=== PATIENT | female | born 1930 | race Caucasian/White ===

== ENCOUNTER 2017-04-02 19:25 | Inpatient (IN) | payer MEDICARE, BC ==
--- NOTE | ~2017-04-02 | DS ---
Discharge Summary [facility] [address] [place]. [address] NAME: RAUL HAWK : 30 STATUS : DIS IN PAT#: [id number] AGE: 86 ADM/REG DATE : 04/02/17 MR#: [id number] REPORT SERV DATE: 04/05/17 DICTATED BY: EDDIE GIBBONS DATE: 04/04/17 REPORT STATUS : Draft TRANSCRIBED BY: MODL DATE: 04/04/17 ADMISSION DATE: 04/02/2017 DISCHARGE DATE: 04/04/2017 DISCHARGE DIAGNOSES: Include: 1. Upper gastrointestinal bleed and melena. 2. Hypokalemia, resolved. 3. Hypomagnesia, resolved. 4. History of hypertension. 5. Gastritis. DISCHARGE MEDICATIONS: As follows: Amlodipine 5 mg at bedtime; Lipitor 40 mg daily; Celexa 10 mg at bedtime; Pepcid 20 mg at bedtime; Neurontin 600 mg at bedtime; potassium chloride 10 mEq at bedtime; vitamin B1 500 mg at bedtime; Protonix 40 mg p.o. twice a day for 8 weeks, prescription was written for this; oxycodone APAP 10/325 one tablet every four times a day for pain; aspirin 81 mg daily; and Imodium 2 mg p.r.n. for diarrhea. HISTORY OF PRESENT ILLNESS: Pleasant 86-year-old female, presented with melena. Please see the initial H and P of Dr. Cesar Fleming. This patient is admitted to the Hospitalist Service for further evaluation and treatment. CONSULTANTS DURING THIS ADMISSION: Gastroenterology, Dr. Maynard. PROCEDURES AND IMAGING DURING THIS ADMISSION: Include an initial CT of the abdomen and pelvis showing cardiomegaly, heavy coronary artery disease, extensive diverticulosis and then an upper GI endoscopy that showed a torturous esophagus, nonbleeding erosive gastropathy, gastritis, and a normal duodenal bulb and 2nd part of the duodenum. HOSPITAL COURSE: The patient was admitted and given proton pump inhibitor, IV drip. Lab work was ordered and followed closely and was seen by site coordinator, Dr. Maynard and underwent the above described endoscopy, which she recovered well from. She did have some electrolyte abnormalities of hypokalemia and hypomagnesia during this admission, which were replaced and are stable now. She was able to be mobilized and her diet slowly advanced and she was felt safe for discharge home on 04/04/2017, instructed to follow up with her primary care in approximately three to four weeks. I have updated her, questions answered at bedside. I appreciate the help of Gastroenterology on this patient's case. DICTATED BY: Eddie Gibbons NP CSC/JUSTINO Discharge Summary [address] [facility] [place]. [id number] NAME: RAUL HAWK : 30 STATUS : DIS IN PAT#: [id number] AGE: 86 ADM/REG DATE : 04/02/17 MR#: [id number] REPORT SERV DATE: 04/05/17 DICTATED BY: EDDIE GIBBONS [facility] DATE: 04/04/17 REPORT STATUS : Draft TRANSCRIBED BY: JUSTINO DATE: 04/04/17 Eddie Gibbons NP / [id number] CC: MD Kwasi Askew D.O.
--- NOTE | ~2017-04-02 | EGD ---
EGD REPORT [facility] [address] [place] [address] NAME: SANJAY WEAVER : 30 STATUS : ADM IN PAT#: [id number] AGE: 86 ADM/REG DATE : 04/02/17 MR#: [id number] REPORT SERV DATE: 04/03/17 DICTATED BY: SIDNEY MEDINA DATE: 04/03/17 REPORT STATUS : Draft TRANSCRIBED BY: [employer] DATE: 04/03/17 Endoscopy Center Patient Name: Sanjay Weaver Date of : 1930 Attending MD: SIDNEY MEDINA, Procedure Date No Time: 04/03/2017 Procedure: Upper GI endoscopy Indications: Anemia, Melena Medicines: Propofol per Anesthesia Complications: No immediate complications. Estimated blood loss: None. Procedure: After obtaining informed consent, the endoscope was passed under direct vision. Throughout the procedure, the patient's blood pressure, pulse, and oxygen saturations were monitored continuously. The GIF [id number] was introduced through the mouth, and advanced to the second part of duodenum. The upper GI endoscopy was accomplished with ease. The patient tolerated the procedure well. Findings: The middle third of the esophagus and lower third of the esophagus were mildly tortuous. The Z-line was found 37 cm from the incisors. A few, small non-bleeding erosions were found in the gastric antrum. There were no stigmata of recent bleeding. Biopsies were taken with a cold forceps for histology. Estimated blood loss: none. Mild inflammation characterized by congestion (edema), erosions and erythema was found in the gastric antrum. Biopsies were taken with a cold forceps for histology. Estimated blood loss: none. The duodenal bulb and 2nd part of the duodenum were normal. Impression: - Tortuous esophagus. - Z-line 37 cm from the incisors. - Non-bleeding erosive gastropathy. Biopsied. - Gastritis. Biopsied. - Normal duodenal bulb and 2nd part of the duodenum. Recommendation: - Discharge patient to home from GI standpoint. - Regular diet. - Use Protonix (pantoprazole) 40 mg PO BID for 8 weeks. - Await pathology results. - Return to GI clinic in 2 weeks. Procedure Code(s): --- Professional --- 71881, Esophagogastroduodenoscopy, flexible, transoral; EGD REPORT [address] [address] NAME: SANJAY WEAVER : 30 STATUS : ADM IN [facility]#: [id number] AGE: 86 ADM/REG DATE : 04/02/17 MR#: [id number] REPORT SERV DATE: 04/03/17 DICTATED BY: SIDNEY MEIDNA DATE: 04/03/17 REPORT STATUS : Draft TRANSCRIBED BY: [facility] DATE: 04/03/17 with biopsy, single or multiple Diagnosis Code(s): --- Professional --- Q39.9, Congenital malformation of esophagus, unspecified K31.9, Disease of stomach and duodenum, unspecified K29.70, Gastritis, unspecified, without bleeding D64.9, Anemia, unspecified K92.1, Melena CPT copyright 2013 [employer]. All rights reserved. The codes documented in this report are preliminary and upon grid inspector review may be revised to meet current compliance requirements. SIDNEY MEDINA, 04/03/2017 12:40 PM This report has been signed electronically. Number of Addenda: 0 Note Initiated On: 04/03/2017 12:19 PM Scope Withdrawal Time 0 hours 0 minutes 0 seconds [id number] [id number]
--- NOTE | ~2017-04-02 | CN ---
Consultation Report [facility] [address] [place]. [address] NAME: RAUL WEAVER : 30 STATUS : DIS IN PAT#: [id number] AGE: 86 ADM/REG DATE : 04/02/17 MR#: [id number] REPORT SERV DATE: 04/04/17 DICTATED BY: SIDNEY MAYNARD DATE: 04/04/17 REPORT STATUS : Draft TRANSCRIBED BY: MODAmado DATE: 04/04/17 DATE OF CONSULTATION: 04/03/2017 REASON FOR CONSULTATION: Melena x1 week. HISTORY OF PRESENT ILLNESS: Ms. Weaver is an 86-year-old female with a history of hypertension, dementia, pneumonia, and depression who presents to [facility] with dark stools and fatigue over the past one week. She has had no episodes since her hospitalization. Her hemoglobin and hematocrit have been stable at 12.9 and 38.3 respectively, platelets normal at 267. INR is 1.2, BUN 8 creatinine 0.49. She does admit to some ibuprofen use. PAST MEDICAL HISTORY: Hypertension, depression, dementia, pneumonia, fibromyalgia, diverticulosis, dyslipidemia. PAST SURGICAL HISTORY: Appendectomy, cholecystectomy, hysterectomy, hip surgery, knee surgery. SOCIAL HISTORY: Quit tobacco in her 20s. No alcohol use. Her is in hospice, and she is eager to go home. ALLERGIES: SULFA AND PENICILLIN. MEDICATIONS: Reviewed. ALLERGIES: REVIEWED. FAMILY HISTORY: Noncontributory. PHYSICAL EXAMINATION: VITAL SIGNS: The patient is afebrile. Vital signs are stable. GENERAL: The patient is an elderly female, thin, in no acute distress. She is awake and alert. Her daughter is at her bedside. HEENT: Atraumatic, normocephalic. Anicteric. Mucous membranes moist. CARDIAC: S1, S2. CHEST: Clear. ABDOMEN: Soft, scaphoid, nontender, and nondistended. Bowel sounds normoactive. LABORATORY DATA: Show WBC 8.6, hemoglobin 12.9, hematocrit 38.3, platelets 267. INR is 1.2. Sodium 138, potassium 3.6, chloride 103, bicarb 28, BUN 8, creatinine 0.49, glucose 88. IMPRESSION AND PLAN: This is likely upper GI bleed given anemia and melena. Does not appear to be active at this time but would go ahead and further evaluate with an EGD. Continue PPI and supportive care, make n.p.o., and we will schedule for an EGD with anesthesia to sedate. I reviewed the procedure indications, risks, benefits, and alternatives with the patient, Consultation Report [facility] [address] [place] [address] NAME: RAUL WEAVER : 30 STATUS : DIS IN PAT#: [id number] AGE: 86 ADM/REG DATE : 04/02/17 MR#: [id number] REPORT SERV DATE: 04/04/17 DICTATED BY: SIDNEY MAYNARD DATE: 04/04/17 REPORT STATUS : Draft TRANSCRIBED BY: MODL DATE: 04/04/17 and her daughter and they are agreeable to proceed. Questions and concerns were addressed. MG/JUSTINO Sidney Maynard MD / [id number] CC: MD Kwasi Askew D.O.
--- NOTE | ~2017-04-02 | HP ---
History And Physical [address] [place]. [address] NAME: RAUL HAWK : 30 STATUS : ADM IN PAT#: [id number] AGE: 86 ADM/REG DATE : 04/02/17 MR#: [id number] REPORT SERV DATE: 04/03/17 DICTATED BY: LANCE LUKE DATE: 04/02/17 REPORT STATUS : Draft TRANSCRIBED BY: MODL DATE: 04/02/17 DATE OF ADMISSION: 04/02/2017 CHIEF COMPLAINT: An 86-year-old female presenting with melena. HISTORY OF PRESENT ILLNESS: The patient's history was obtained through careful interview with the patient and daughter coupled with review of [facility] medical records. The patient has been having intermittent black stools for about a week, but over the last two days, has had "diarrhea" with pitch black stools. There has been no bright red blood per rectum. Over that period of time, she has "felt bad," has decreased energy, nausea for about three days, but without any vomiting. She has had a very poor appetite though with no reflux symptoms. No lightheadedness. She has had sinus drainage. She has had intermittent headache, just felt in her forehead going over to her temples bilaterally, but sometimes diffuse up to 8/10 in severity. She fell about a month ago and still is sore on her bottom because of this. REVIEW OF SYSTEMS: Otherwise, a 14-point review of systems was obtained and was negative. PAST MEDICAL HISTORY: 1. Pneumonia. 2. Depression. 3. Dementia. 4. Hypertension. 5. Fibromyalgia. 6. Elevated cholesterol. 7. Diverticulosis. PAST SURGICAL HISTORY: 1. Appendectomy. 2. Cholecystectomy. 3. Hysterectomy. 4. Hip surgery. 5. Knee surgery. ALLERGIES: PENICILLIN AND SULFA. SOCIAL HISTORY: Quit smoking in her 30s. No alcohol use. She is , but is currently at a nursing facility on hospice because of heart disease. Lives with daughter in History And Physical [address] [address] NAME: RAUL HAWK : 30 STATUS : ADM IN PAT#: [id number] AGE: 86 ADM/REG DATE : 04/02/17 MR#: [id number] REPORT SERV DATE: 04/03/17 DICTATED BY: LANCE LUKE DATE: 04/02/17 REPORT STATUS : Draft TRANSCRIBED BY: MODL DATE: 04/02/17 VegaCarmita. FAMILY HISTORY: Mother with heart disease. CURRENT MEDICATIONS: Include Norvasc 5 mg p.o. daily, aspirin 81 mg p.o. daily, Lipitor 40 mg p.o. daily, Celexa 10 mg at bedtime, Pepcid 20 mg p.o. daily, Neurontin 600 mg nightly, Imodium p.r.n., Percocet p.r.n., potassium 10 mEq p.o. daily, and vitamin B1. PHYSICAL EXAMINATION: VITAL SIGNS: Temperature 98.1, pulse 87, blood pressure 148/84, respiratory rate 20, and O2 saturation 94% on room air. GENERAL: A pleasant, cooperative female, in no evidence of acute distress. HEENT: Pupils are equal, round, and reactive to light. No conjunctival pallor. No scleral icterus. Nares are patent. Oropharynx is clear of obstruction. Moist mucous membranes. NECK: Trachea midline. No thyromegaly. LYMPH: No cervical lymphadenopathy. No supraclavicular lymphadenopathy. RESPIRATORY: Clear to auscultation at bases. No wheezes, rales, or rhonchi. Normal respiratory effort. CARDIOVASCULAR: Regular rate and rhythm. No murmurs, rubs, or gallops. No extremity edema is appreciated. ABDOMEN: Soft, nontender, and nondistended. Normal bowel sounds auscultated throughout. No hepatosplenomegaly. DERMATOLOGICAL: Warm and dry extremities. No pallor. No cyanosis. PSYCHIATRIC: Normal affect. Good mood. Alert and oriented x3. LABORATORY DATA: White blood cell count 9.8, hemoglobin 14, hematocrit 39, and platelets 296. Sodium 138, potassium 2.5, chloride 100, bicarb 31, BUN 6, creatinine 0.45, glucose 104, lipase 225, albumin 2.8, troponin 0.04, lactic acid 1.5, INR 1.2, AST 62 and alkaline phosphatase 139. STUDIES: CT scan of the abdomen and pelvis shows no acute intraabdominal process. ASSESSMENT AND PLAN: 1. Upper gastrointestinal bleed. Place on IV proton pump inhibitor drip. Consult home aide, Dr. Maynard. 2. Hypokalemia. Replace. Check magnesium. KPL/MODL Lance Luke M.D. / [id number] CC: History And Physical [address] [address] NAME: RAUL HAWK : 30 STATUS : ADM IN PAT#: [id number] AGE: 86 ADM/REG DATE : 04/02/17 MR#: [id number] REPORT SERV DATE: 04/03/17 DICTATED BY: LANCE LUKE DATE: 04/02/17 REPORT STATUS : Draft TRANSCRIBED BY: JUSTINO DATE: 04/02/17 MD Kwasi Askew D.O.
[~2017-04-02 19:25] MED LIST: ADVIL PM PO; ASA5GR PO; CELEXA10 PO; CENTRUM SILVER PO; ENDOCET1 TA3 PO; FLONASE NAS; HALCION0.25 MG PO; K250 PO; KLOR-CON 1010 MEQ PO; LIPITOR40 PO; LOP25 PO; NORV5 PO; PEP20 PO; PERCOCET1 TA4 PO; REM15 PO; SOMATAB PO; VITAMIN D31000 UNIT PO
[2017-04-02 20:09] LABS: BASOPHILS 0.6 %; BASOPHILS ABSOLUTE 0.06 10/3/uL (0.0-0.16); EOSINOPHILS 0.9 %; EOSINOPHILS ABSOLUTE 0.09 10/3/uL (0.0-0.53); HEMATOCRIT 39.4 % (36.0-48.0); HEMOGLOBIN 13.7 g/dL (12.0-16.0); IMMATURE GRANULOCYTES 0.2 %; IMMATURE GRANULOCYTES ABSOLUTE 0.02 10/3/uL (0.0-0.11); LYMPHOCYTES 13.7 %; LYMPHOCYTES ABSOLUTE 1.34 10/3/uL (0.67-4.30); MEAN CORPUS HGB CONC 34.8 g/dL (32.0-36.0); MEAN CORPUSCULAR HEMOGLOB 31.2 pg (26.0-34.0); MEAN CORPUSCULAR VOLUME 89.7 fL (80-100); MEAN PLATELET VOLUME 10.7 fL (9.2-13.0); MONOCYTES 10.2 %; NEUTROPHILS 74.4 %; NEUTROPHILS ABSOLUTE 7.26 10/3/uL (2.02-8.40); RBC DISTRIBUTION WIDTH 12.6 % (12.0-16.0); RED CELL COUNT 4.39 10/6/uL (4.0-5.6); WHITE BLOOD CELLS 9.8 10/3/uL (4.5-10.5)
[2017-04-02 20:12] LABS: MANUAL DIFF NO %; PLATELET COUNT 296 10/3/uL (150-400)
[2017-04-02 20:18] LABS: INTERNATIONAL NORMAL RATI 1.2 UNITS (-); PARTIAL THROMBO TIME 30.3 SEC (22.5-37.2); PROTIME (NOT ORD) 14.7 SEC (12.0-14.5)
[2017-04-02 20:27] LABS: ALBUMIN 2.8 G/DL (3.5-5.0); CALCIUM, SERUM 8.8 MG/DL (8.5-10.4); CHEST PAIN PROFILE TAT 0 Hrs 22 Mins; CHLORIDE, SERUM 100 MMOL/L (96-112); CO2 (CARBON DIOXIDE) 31 MMOL/L (24-34); CREATININE 0.45 MG/DL (0.55-1.02); DIRECT BILIRUBIN 0.2 MG/DL (0.0-0.4); GFR AFRICAN AMERICAN 105 ML/MIN (>=60); GFR NON AFRICAN AMERICAN 91 ML/MIN (>=60); GLUCOSE, SERUM 104 MG/DL (60-99); INDIRECT BILIRUBIN(NOT ORDER) 0.5 MG/DL (0.1-0.9); SGOT(AST) 62 U/L (5-40); SGPT(ALT) 30 U/L (5-65); SODIUM, SERUM 138 MMOL/L (135-148); TOTAL BILIRUBIN 0.7 MG/DL (0-1.2); TOTAL PROTEIN 6.4 G/DL (6.0-8.5); TROPONIN I 0.04 NG/ML (<0.05)
[2017-04-02 20:28] LABS: ALKALINE PHOSPHATASE 139 U/L (45-117); BUN (BLOOD UREA NITROGEN) 6 MG/DL (6-23); POTASSIUM, SERUM 2.5 MMOL/L (3.5-5.3)
[2017-04-02] MEDS ORDERED: CELEXA10 PO (21:34)
[2017-04-02] MEDS ORDERED: PERCOCET 10/3251 TAB PO (21:35)
[2017-04-02] MEDS ORDERED: KLOR-CON M1010 MEQ PO (21:35)
[2017-04-02] MEDS ORDERED: NEUR600 PO (21:38)
[2017-04-02] MEDS ORDERED: PEP20 PO (21:38)
[2017-04-02] MEDS ORDERED: NORV5 PO (21:39)
[2017-04-02] MEDS ORDERED: VITAMIN B-1500 MG PO (21:40)
[2017-04-02] MEDS ORDERED: IMOD PO (21:40)
[2017-04-02] MEDS ORDERED: LIPITOR40 PO (21:40)
[2017-04-02] MEDS ORDERED: HALF81 PO (21:40)
[2017-04-03 05:18] LABS: BASOPHILS 1.2 %; EOSINOPHILS 2.8 %; EOSINOPHILS ABSOLUTE 0.24 10/3/uL (0.0-0.53); HEMATOCRIT 35.8 % (36.0-48.0); HEMOGLOBIN 12.3 g/dL (12.0-16.0); IMMATURE GRANULOCYTES 0.2 %; IMMATURE GRANULOCYTES ABSOLUTE 0.02 10/3/uL (0.0-0.11); LYMPHOCYTES 26.1 %; LYMPHOCYTES ABSOLUTE 2.25 10/3/uL (0.67-4.30); MEAN CORPUS HGB CONC 34.4 g/dL (32.0-36.0); MEAN CORPUSCULAR HEMOGLOB 31.4 pg (26.0-34.0); MEAN CORPUSCULAR VOLUME 91.3 fL (80-100); MEAN PLATELET VOLUME 10.4 fL (9.2-13.0); MONOCYTES 8.9 %; MONOCYTES ABSOLUTE 0.77 10/3/uL (0.21-1.20); NEUTROPHILS 60.8 %; NEUTROPHILS ABSOLUTE 5.24 10/3/uL (2.02-8.40); PLATELET COUNT 267 10/3/uL (150-400); RBC DISTRIBUTION WIDTH 12.7 % (12.0-16.0); RED CELL COUNT 3.92 10/6/uL (4.0-5.6); WHITE BLOOD CELLS 8.6 10/3/uL (4.5-10.5)
[2017-04-03 05:19] LABS: PARTIAL THROMBO TIME 32.1 SEC (22.5-37.2)
[2017-04-03 05:20] LABS: MANUAL DIFF NO %
[2017-04-03 05:43] LABS: A/G RATIO 0.8 (0.7-1.9); ALBUMIN 2.4 G/DL (3.5-5.0); BUN (BLOOD UREA NITROGEN) 8 MG/DL (6-23); CALCIUM, SERUM 8.5 MG/DL (8.5-10.4); CHLORIDE, SERUM 103 MMOL/L (96-112); CO2 (CARBON DIOXIDE) 28 MMOL/L (24-34); CREATININE 0.49 MG/DL (0.55-1.02); GFR AFRICAN AMERICAN 102 ML/MIN (>=60); GFR NON AFRICAN AMERICAN 88 ML/MIN (>=60); GLOBULIN 3.2 G/DL (2.5-4.1); GLUCOSE, SERUM 88 MG/DL (60-99); SGOT(AST) 100 U/L (5-40); SGPT(ALT) 45 U/L (5-65); SODIUM, SERUM 138 MMOL/L (135-148); TOTAL BILIRUBIN 0.9 MG/DL (0-1.2); TOTAL PROTEIN 5.6 G/DL (6.0-8.5); TROPONIN I 0.03 NG/ML (<0.05)
[2017-04-03 05:49] LABS: ALKALINE PHOSPHATASE 120 U/L (45-117); POTASSIUM, SERUM 2.8 MMOL/L (3.5-5.3); ULTRASENSITIVE TSH 0.585 MCIU/ML (0.358-3.740)
[2017-04-03 15:29] LABS: HEMATOCRIT 38.3 % (36.0-48.0); HEMOGLOBIN 12.9 g/dL (12.0-16.0)
[2017-04-03 19:31] LABS: ASCORBIC ACID (UR NOT ORDER) NEG (NEG); BILIRUBIN, URINE NEGATIVE (NEG); KETONE, URINE TRACE MG/DL (NEG); LEUKOCYTE ESTERASE(NOT OR TRACE (NEG); WBC (NOT ORDERED) (RFLEX) 9 (0-5)
[2017-04-03 22:03] LABS: HEMATOCRIT 36.9 % (36.0-48.0); HEMOGLOBIN 12.2 g/dL (12.0-16.0)
[2017-04-04 06:16] LABS: BASOPHILS ABSOLUTE 0.08 10/3/uL (0.0-0.16); EOSINOPHILS 8.5 %; EOSINOPHILS ABSOLUTE 0.68 10/3/uL (0.0-0.53); HEMATOCRIT 36.5 % (36.0-48.0); HEMOGLOBIN 12.1 g/dL (12.0-16.0); IMMATURE GRANULOCYTES 0.2 %; IMMATURE GRANULOCYTES ABSOLUTE 0.02 10/3/uL (0.0-0.11); LYMPHOCYTES 20.1 %; LYMPHOCYTES ABSOLUTE 1.61 10/3/uL (0.67-4.30); MEAN CORPUS HGB CONC 33.2 g/dL (32.0-36.0); MEAN CORPUSCULAR HEMOGLOB 31.3 pg (26.0-34.0); MEAN PLATELET VOLUME 10.7 fL (9.2-13.0); MONOCYTES 10.6 %; MONOCYTES ABSOLUTE 0.85 10/3/uL (0.21-1.20); NEUTROPHILS 59.6 %; NEUTROPHILS ABSOLUTE 4.77 10/3/uL (2.02-8.40); PLATELET COUNT 241 10/3/uL (150-400); RBC DISTRIBUTION WIDTH 13.1 % (12.0-16.0); RED CELL COUNT 3.87 10/6/uL (4.0-5.6)
[2017-04-04 06:20] LABS: MANUAL DIFF NO %; MEAN CORPUSCULAR VOLUME 94.3 fL (80-100)
[2017-04-04 06:27] LABS: CALCIUM, SERUM 8.6 MG/DL (8.5-10.4); CHLORIDE, SERUM 103 MMOL/L (96-112); CO2 (CARBON DIOXIDE) 28 MMOL/L (24-34); CREATININE 0.74 MG/DL (0.55-1.02); GFR AFRICAN AMERICAN 85 ML/MIN (>=60); GFR NON AFRICAN AMERICAN 73 ML/MIN (>=60); POTASSIUM, SERUM 4.1 MMOL/L (3.5-5.3); SODIUM, SERUM 136 MMOL/L (135-148)
[2017-04-04 06:28] LABS: BUN (BLOOD UREA NITROGEN) 13 MG/DL (6-23); GLUCOSE, SERUM 128 MG/DL (60-99)
[2017-04-04] MEDS ORDERED: PROTONIX PO (11:02)
[2017-05-23] MEDS ORDERED: PERCOCET 10/3251 TAB PO (17:27)
[2017-05-23] MEDS ORDERED: PROTONIX PO (17:28)
[2017-05-23] MEDS ORDERED: CELEXA10 PO (17:29)
[2017-05-23] MEDS ORDERED: PRAVACHOL40 MG PO (17:29)
[2017-05-23] MEDS ORDERED: KLOR-CON M1010 MEQ PO (17:30)
[2017-05-23] MEDS ORDERED: LIPITOR40 PO (17:30)
[2017-05-23] MEDS ORDERED: NORV5 PO (17:31)
[2017-05-23] MEDS ORDERED: NEUR300 PO (17:32)
[2017-05-23] MEDS ORDERED: ASABAYER PO (17:33)
[2017-05-23] MEDS ORDERED: VITAMIN D400 UNI1 PO (17:35)
[2017-05-23] MEDS ORDERED: B150 PO (17:35)
[2017-05-24] MEDS ORDERED: CEFT2 PO (16:57)
[2017-07-06] MEDS ORDERED: UNK ANTIBIOTIC (22:29)
[2017-07-06] MEDS ORDERED: PEP10 PO (22:32)
[2017-07-06] MEDS ORDERED: IMODIUM PO (22:33)
[2017-07-06] MEDS ORDERED: FERROUS SULF325 M1 PO (22:34)
[2017-07-06] MEDS ORDERED: SPIRIVA INH (22:35)
[2017-07-06] MEDS ORDERED: TOPXL25 PO (22:36)
== END 2017-04-04 13:53 | disposition home or self-care (01) | DRG 378 ==
LOC: ER 19:25 → 2SO 22:41
PROVIDERS: Emergency Medicine; Internal Medicine Gastroenterology; Student in an Organized Health Care Education/Training Program
PROC: 0DB68ZX Excision of Stomach, Via Natural or Artificial Opening Endoscopic, Diagnostic (ICD-10-PCS; principal; 2017-04-03 12:26)
DX: K92.1 Melena (principal); Q39.9 Congenital malformation of esophagus, unspecified; F03.90 Unspecified dementia, unspecified severity, without behavioral disturbance, psychotic disturbance, mood disturbance, and anxiety; D64.9 Anemia, unspecified; F32.9 Major depressive disorder, single episode, unspecified; I10 Essential (primary) hypertension; M79.7 Fibromyalgia; E78.00 Pure hypercholesterolemia, unspecified; K57.30 Diverticulosis of large intestine without perforation or abscess without bleeding; E87.6 Hypokalemia; K29.70 Gastritis, unspecified, without bleeding; E83.42 Hypomagnesemia; K31.9 Disease of stomach and duodenum, unspecified; I25.10 Atherosclerotic heart disease of native coronary artery without angina pectoris; Z98.890 Other specified postprocedural states; Z88.0 Allergy status to penicillin; Z88.2 Allergy status to sulfonamides; Z82.49 Family history of ischemic heart disease and other diseases of the circulatory system; Z87.891 Personal history of nicotine dependence
CPT/HCPCS: 36415; 74000; 74176; 80048; 80053; 80076; 81001; 82140; 83605; 83690; 83735; 83880; 84132; 84443; 84484; 85014; 85018; 85025; 85610; 85730; 86850; 86900; 86901; 88305; 99285; A9270-GY; C9113; J3475